=== PATIENT | female | born 1935 | race Caucasian/White ===

== ENCOUNTER 2016-08-08 08:33 | Emergency (ER) | payer MEDICARE, BC ==
--- NOTE | 2016-08-08 10:45 | EDM.PDOC ---
[id number] Complaint: STOMACH ULCER/ABD PAIN Time Seen by Provider: 08/08/16 10:40 Source of Information: Reports: Patient, Family History Limitations: Reports: No Limitations - History of Present Illness INITIAL COMMENTS - FREE TEXT/NARRATIVE: pt arrived with pain in the left lower abdoman. She has a known ventral hernia on th left. She hs been having marked diarrhea for the past 2 days. This is not dark or bloody in nature. Onset: Gradual Duration: Day(s): Location: Reports: Abdomen Associated Symptoms: Reports: Other ( diarrhea) - Related Data Allergies Allergy/AdvReac Type Severity Reaction Status Date / Time No Known Allergies Allergy Verified 08/08/16 10:03 Home Meds: Home Meds Calcium Carb & Citrate/Vit D3 [Calcium + D3 ER Tablet] 1,200 mg PO DAILY [History] Donepezil HCl 10 mg PO DAILY 08/08/16 [History] Fish Oil/DHA/EPA [Fish Oil 1,200 MG] 1,200 mg PO DAILY 08/08/16 [History] Iron 65 mg PO DAILY 08/08/16 [History] Past Medical History HEENT History: Reports: Cataract Genitourinary History: Reports: Other (See Below) Other Genitourinary History: renal cancer lt kidney removed MANAGEMENT TECH History: Reports: Neurological History: Reports: Alzheimers Disease, Other (See Below) Other Neuro History: aricept for short term memory issues Psychiatric History: Reports: Alzheimers Disease, Other (See Below) Oncologic (Cancer) History: Reports: Renal 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 - Infectious Disease History Infectious Disease History: Reports: Chicken Pox, Measles - Past Surgical History GI Surgical History: Reports: Cholecystectomy Social & Family History - Family History Cardiac: Reports: CAD Endocrine/Metabolic: Reports: Diabetes, Type I Oncologic: Reports: Bone, Prostate - Tobacco Use Smoking Status *Q: Never Smoker - Caffeine Use Caffeine Use: Reports: Coffee, Soda, Tea Other Caffeine Use: daily - Recreational Drug Use Recreational Drug Use: No ED ROS GENERAL - Review of Systems Review Of Systems: See Below Constitutional: Reports: Weakness, Decreased Appetite HEENT: Reports: No Symptoms Respiratory: Reports: No Symptoms Cardiovascular: Reports: No Symptoms Endocrine: Reports: No Symptoms GI/Abdominal: Reports: Abdominal Pain, Diarrhea, Decreased Appetite, Other (pt has pain in the left lower abdoman. ) : Reports: No Symptoms, Other (history of Ca of the kidney. ) Musculoskeletal: Reports: No Symptoms Skin: Reports: No Symptoms Psychiatric: Reports: No Symptoms Hematologic/Lymphatic: Reports: No Symptoms Immunologic: Reports: No Symptoms ED EXAM, GI/ABD - Physical Exam Exam: See Below Text/Narrative:: Pt has been having pain in the rt lower abdoman. She has been having loose stools for the past 2 days. Exam Limited By: No Limitations General Appearance: Alert, Anxious, Moderate Distress Eyes: Bilateral: Normal Appearance, EOMI Ears: Normal TMs Nose: Normal Inspection Throat/Mouth: Normal Inspection Head: Atraumatic Neck: Normal Inspection Respiratory/Chest: No Respiratory Distress Cardiovascular: Regular Rate, Rhythm GI/Abdominal: Tenderness, Guarding, Other ( Pt has been having diarrhea and she is tender in the left lower abdoman. She has had diverticulitis in the past. ) (Female) Exam: Deferred Rectal (Female) Exam: Deferred Back Exam: Normal Inspection Extremities: Normal Inspection Neurological: Alert, Oriented, Normal Cognition Psychiatric: Anxious Course - Vital Signs Last Recorded V/S: Last Vital Signs Temp 36.3 C 08/08/16 10:09 Pulse 58 L 08/08/16 11:56 Resp 14 08/08/16 11:56 BP 142/74 H 08/08/16 11:56 Pulse Ox 96 08/08/16 11:56 - Orders/Labs/Meds Labs: Laboratory Tests 08/08/16 08/08/16 08/08/16 Range/Units 09:54 09:54 09:54 WBC 8.9 (4.5-11.0) K/uL RBC 4.64 (3.30-5.50) M/uL Hgb 13.4 (12.0-15.0) g/dL Hct 40.9 (36.0-48.0) % MCV 88 (80-98) fL MCH 29 (27-31) pg MCHC 33 (32-36) % Plt Count 247 (150-400) K/uL Neut % (Auto) 78 H (36-66) % Lymph % (Auto) 8 L (24-44) % [place] % (Auto) 12 H (2-6) % Eos % (Auto) 1 L (2-4) % Baso % (Auto) 1 (0-1) % Sodium 138 L (140-148) mmol/L Potassium 4.1 (3.6-5.2) mmol/L Chloride 101 (100-108) mmol/L Carbon Dioxide 26 (21-32) mmol/L Anion Gap 15.1 H (5.0-14.0) mmol/L BUN 19 H (7-18) mg/dL Creatinine 1.6 H (0.6-1.0) mg/dL Est Cr Clr Drug Dosing 24.62 mL/min Estimated GFR (MDRD) 31 L (>60) Glucose 88 (74-106) mg/dL Calcium 9.1 (8.5-10.1) mg/dL Total Bilirubin 0.9 (0.2-1.0) mg/dL AST 16 (15-37) U/L ALT 12 (12-78) U/L Alkaline Phosphatase 68 (46-116) U/L C-Reactive Protein 6.25 H (0.0-0.3) mg/dL Total Protein 7.1 (6.4-8.2) g/dL Albumin 3.5 (3.4-5.0) g/dL Globulin 3.6 H (2.3-3.5) g/dL Albumin/Globulin Ratio 1.0 L (1.2-2.2) Urine Color Yellow Urine Appearance Slightly cloudy Urine pH 5.0 (4.5-8.0) Ur Specific [place] 1.015 (1.008-1.030) Urine Protein Negative (NEGATIVE) mg/dL Urine Glucose (UA) Normal (NEGATIVE) mg/dL Urine Ketones 15 H (NEGATIVE) mg/dL Urine Occult Blood Negative (NEGATIVE) Urine Nitrite Negative (NEGATIVE) Urine Bilirubin Negative (NEGATIVE) Urine Urobilinogen Normal (NORMAL) mg/dL Ur Leukocyte Esterase Negative (NEGATIVE) Urine RBC 0-5 (0-5) Urine WBC Not seen (0-5) Ur Epithelial Cells Rare Amorphous Sediment Rare Urine Bacteria Not seen Urine Mucus Not seen Meds: Medications Discontinued Medications Generic Name Dose Route Start Last Admin Trade Name Freq PRN Reason Stop Dose Admin Sodium Chloride 1,000 mls @ 999 mls/hr 08/08/16 11:45 08/08/16 11:57 Normal Saline IV 999 mls/hr ASDIRECTED KATIE Administration Metronidazole 500 mg/ Premix 100 mls @ 100 mls/hr 08/08/16 11:43 08/08/16 12: 16 IV 08/08/16 12:42 100 mls/hr ONETIME ONE Administration Levofloxacin/Dextrose 500 mg/ 100 mls @ 100 mls/hr 08/08/16 11:44 08/08/16 12 :15 Premix IV 08/08/16 12:43 100 mls/hr ONETIME ONE Administration - Re-Assessments/Exams Free Text/Narrative Re-Assessment/Exam: 08/08/16 12:21 Pt had an elvated crp. Her wbc was not elevated. Her creatnine was 1.6. She had a noncontrast cat scan which showed acute diverticulits. 08/09/16 19:25 pt was given flagyl 500mg iv and levoquin 500mg iv. Departure - Departure Time of Disposition: 12:22 Disposition: Home, Self-Care 01 Condition: Fair Clinical Impression: Diverticulitis - Discharge Information Instructions: Diverticulitis, [id number] Referrals: PCP,None [Primary Care Provider] - Forms: ED Department Discharge Care Plan Goals: cipro 500mg bid for 10 days, flagyl 250mg tid for 10 days, appt with Dr Villarreal in [place] on Saturday in follow up. If not improving rtc to the ER. tylenol for pain.
--- NOTE | 2016-08-08 11:23 | CT ---
Abdomen Pelvis wo Cont HISTORY: left lower quadrant pain, diarrhea. Axial spiral noncontrasted CT scan of the abdomen and pelvis was obtained along with coronal reconst ructions. There are no prior exams for comparison. FINDINGS: There is a 3 mm noncalcified pulmonary nodule left lower lobe posteriorly on axial image 5 . Also centered on axial image 5 is a noncalcified pulmonary nodule lateral left lower lobe measurin g 4 x 7 mm. There is mild linear scarring at the lung bases. No pleural fluid is seen. Heart size ap pears normal. No obvious focal amount of the liver or spleen can be identified on this noncontrasted exam. Surgica l clips are noted in the gallbladder bed consistent with prior cholecystectomy. There is a 1 cm diam eter cyst at the tail of the pancreas. No other pancreatic abnormality is seen. I see no biliary or pancreatic duct dilatation. No adrenal mass is identified. Left nephrectomy changes are noted. No ri ght renal mass or hydronephrosis can be seen. There is scattered atherosclerotic vascular calcificat ion. Abdominal aorta is not dilated. Multiple diverticula are present in the descending and sigmoid colon. There is a prominent inflamed diverticulum mid sigmoid colon. There is adjacent colon wall thickening and stranding in the pericol onic fat. Findings appear consistent with acute diverticulitis. I see no definite perforation or abs cess. Small bowel loops are nondistended. No free air or free fluid is seen. There is a small abdominal wall hernia left lower quadrant with no signs of incarceration. There is no pelvic, retroperitoneal, mesenteric adenopathy. No obvious lytic or blastic bony lesion can be se en. Diffuse degenerative changes are noted lower thoracic and lumbar spine. IMPRESSION: 1. Diverticulosis descending and sigmoid colon. Probable acute diverticulitis mid sigmoid colon. No perforation or abscess is identified. 2. Status post cholecystectomy. 3. A 1 cm diameter cyst is noted tail of the pancreas. 4. Scattered atherosclerotic vascular calcification. 5. Status post left nephrectomy. 6. There are 2 small, nonspecific left lower lobe pulmonary nodules as described above. Metastatic d isease is not excluded. Obtaining prior CT exams for comparison would be helpful to assess for inter evans changes. 7. Small abdominal wall hernia is noted left lower quadrant. No signs of incarceration. Report was called to Dr. Rice in the Emergency Department at 1110 hours. Total DLP 855 mGycm
[2016-08-08] MEDS ORDERED: metroNIDAZOLE/Normal Saline 500 MG in Premix Bag 1 BAG IV ONE (11:43)
[2016-08-08] MEDS ORDERED: Levofloxacin/Dextrose 5%-Water 500 MG in Premix Bag 1 BAG IV ONE (11:44)
[2016-08-08] MEDS ORDERED: Sodium Chloride 0.9% 1,000 ML IV SCH (11:45)
[2016-08-08 11:57] VITALS: BP 142/74
== END 2016-08-08 13:36 | disposition home or self-care (01) ==
LOC: JP.ED 08:33
DX: K57.92 Diverticulitis of intestine, part unspecified, without perforation or abscess without bleeding (principal); G30.9 Alzheimer's disease, unspecified; Z90.49 Acquired absence of other specified parts of digestive tract; Z79.899 Other long term (current) drug therapy
CPT/HCPCS: 36415; 74176; 80053; 81001; 85025; 86140; 96361; 96365; 96368; 99284; J1956; J7040

== ENCOUNTER 2016-08-12 18:26 | Emergency (ER) | payer MEDICARE, BC ==
[2016-08-12 18:47] VITALS: BP 148/77
--- NOTE | 2016-08-12 19:31 | EDM.PDOC ---
ED HPI GENERAL MEDICAL PROBLEM - General Chief Complaint: Skin Complaint Stated Complaint: REACTION TO MEDICATION GIVEN EARLIER THIS WEEK Time Seen by Provider: 08/12/16 19:15 Source of Information: Reports: Patient, Family History Limitations: Reports: No Limitations - History of Present Illness INITIAL COMMENTS - FREE TEXT/NARRATIVE: 81-year-old female currently on antibiotics for diverticulitis has developed several periodic papules on her upper chest and left neck over the past 2 days. They've been putting bacitracin on the lesions and they started searching on the Internet and thought she might be having a reaction to the antibiotics. No shortness of breath, no nausea or vomiting, the diverticulitis is improving. Onset: Gradual (Over the past 2 days) Location: Reports: Neck, Chest Severity: Mild Associated Symptoms: Reports: Other (Lesions are pruritic and slightly tender) - Related Data Allergies Allergy/AdvReac Type Severity Reaction Status Date / Time No Known Allergies Allergy Verified 08/08/16 10:03 Home Meds: Home Meds Calcium Carb & Citrate/Vit D3 [Calcium + D3 ER Tablet] 1,200 mg PO DAILY [History] Donepezil HCl 10 mg PO DAILY 08/08/16 [History] Fish Oil/DHA/EPA [Fish Oil 1,200 MG] 1,200 mg PO DAILY 08/08/16 [History] Iron 65 mg PO DAILY 08/08/16 [History] Ciprofloxacin [Ciprofloxacin HCl] 500 mg PO BID 08/12/16 [History] metroNIDAZOLE [Metronidazole] 250 mg PO TID 08/12/16 [History] Past Medical History HEENT History: Reports: Cataract Gastrointestinal History: Reports: Diverticulosis Genitourinary History: Reports: Other (See Below) Other Genitourinary History: renal cancer lt kidney removed [employer]ING RO[employer] History: Reports: Neurological History: Reports: Alzheimers Disease, Other (See Below) Other Neuro History: aricept for short term memory issues Psychiatric History: Reports: Alzheimers Disease, Other (See Below) Oncologic (Cancer) History: Reports: Renal 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 - Infectious Disease History Infectious Disease History: Reports: Chicken Pox, Measles - Past Surgical History GI Surgical History: Reports: Cholecystectomy Social & Family History - Family History Cardiac: Reports: CAD Endocrine/Metabolic: Reports: Diabetes, Type I Oncologic: Reports: Bone, Prostate - Tobacco Use Smoking Status *Q: Never Smoker Second Hand Smoke Exposure: No - Caffeine Use Caffeine Use: Reports: Coffee Other Caffeine Use: daily - Recreational Drug Use Recreational Drug Use: No ED ROS GENERAL - Review of Systems Review Of Systems: See Below Constitutional: Denies: Fever, Chills HEENT: Reports: No Symptoms Respiratory: Denies: Shortness of Breath Cardiovascular: Denies: Chest Pain GI/Abdominal: Reports: Abdominal Pain (Diverticulitis pain is almost gone). Denies: Nausea, Vomiting Skin: Reports: Other (See HPI) ED EXAM, SKIN/RASH Exam: See Below Exam Limited By: No Limitations General Appearance: Alert, No Apparent Distress Throat/Mouth: Normal Inspection Neck: Other (Patient has 3 discrete slightly erythematous papules 2 on the left neck and one in the upper chest. They appear to be some type of insect bite.) Respiratory/Chest: No Respiratory Distress, Lungs Clear Cardiovascular: Regular Rate, Rhythm Neurological: Alert, Oriented Psychiatric: Normal Affect, Normal Mood Skin: Warm, Dry, Other (Other than 3 apparent insect bites there are no other skin abnormalities obvious) Course - Vital Signs Last Recorded V/S: Last Vital Signs Temp 98.3 F 08/12/16 18:57 Pulse 58 L 08/12/16 18:57 Resp 12 08/12/16 18:57 BP 148/77 H 08/12/16 18:57 Pulse Ox 96 08/12/16 18:57 - Re-Assessments/Exams Free Text/Narrative Re-Assessment/Exam: 08/12/16 19:29 Reassured the patient this is not a reaction to the antibiotic. She was given triamcinolone cream to use 3 times a day on the bites, and I advised her to use some oral Benadryl at bedtime to help her sleep. These should improve rapidly, if they're worsening she can return anytime. Departure - Departure Time of Disposition: 19:40 Disposition: Home, Self-Care 01 Condition: Good Clinical Impression: Insect bite of neck Qualifiers: Encounter type: initial encounter Qualified Code(s): S10.96XA - Insect bite of unspecified part of neck, initial encounter - Discharge Information Instructions: Insect Bite, [id number] Referrals: PCP,None [Primary Care Provider] - Forms: ED Department Discharge Care Plan Goals: Use cream on the bites 3 times a day for the next 5-7 days. Oral Benadryl at bedtime may help with sleep. Consider rechecking in 3-4 days if not significant improvement, or return anytime if you feel you're worsening.
== END 2016-08-12 19:40 | disposition home or self-care (01) ==
LOC: JP.ED 18:26
DX: S10.96XA Insect bite of unspecified part of neck, initial encounter (principal); W57.XXXA Bitten or stung by nonvenomous insect and other nonvenomous arthropods, initial encounter; E10.9 Type 1 diabetes mellitus without complications; G30.9 Alzheimer's disease, unspecified; F02.80 Dementia in other diseases classified elsewhere, unspecified severity, without behavioral disturbance, psychotic disturbance, mood disturbance, and anxiety; Z90.5 Acquired absence of kidney; Z79.899 Other long term (current) drug therapy; Z90.49 Acquired absence of other specified parts of digestive tract
CPT/HCPCS: 99282; 99283

== ENCOUNTER 2016-10-26 09:22 | Emergency (ER) | payer MEDICARE, BC ==
[2016-10-26 09:35] VITALS: BP 183/106
--- NOTE | 2016-10-26 10:21 | EDM.PDOC ---
ED HPI GENERAL MEDICAL PROBLEM - General Chief Complaint: Genitourinary Problem Stated Complaint: UTI SYMPTOMS Time Seen by Provider: 10/26/16 10:17 Source of Information: Reports: Patient, Family, RN Notes Reviewed History Limitations: Reports: No Limitations - History of Present Illness INITIAL COMMENTS - FREE TEXT/NARRATIVE: 81-year-old female presents emergency department today complaint of burning with urination she states that she's had symptoms for about a week however has progressively gotten worse over the last couple days she denies any fevers nausea vomiting shortness of breath chest pain - Related Data Allergies Allergy/AdvReac Type Severity Reaction Status Date / Time No Known Allergies Allergy Verified 10/26/16 09:31 Home Meds: Home Meds Calcium Carb & Citrate/Vit D3 [Calcium + D3 ER Tablet] 1,200 mg PO DAILY [History] Donepezil HCl 10 mg PO DAILY 08/08/16 [History] Fish Oil/DHA/EPA [Fish Oil 1,200 MG] 1,200 mg PO DAILY 08/08/16 [History] Iron 65 mg PO DAILY 08/08/16 [History] Past Medical History HEENT History: Reports: Cataract Gastrointestinal History: Reports: Diverticulosis Genitourinary History: Reports: Other (See Below) Other Genitourinary History: renal cancer lt kidney removed [employer] History: Reports: Neurological History: Reports: Alzheimers Disease, Other (See Below) Other Neuro History: aricept for short term memory issues Psychiatric History: Reports: Alzheimers Disease Oncologic (Cancer) History: Reports: Renal 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 - Infectious Disease History Infectious Disease History: Reports: Chicken Pox, Measles - Past Surgical History GI Surgical History: Reports: Cholecystectomy Female Surgical History: Reports: Nephrectomy Musculoskeletal Surgical History: Reports: Knee Replacement Social & Family History - Family History Cardiac: Reports: CAD Endocrine/Metabolic: Reports: Diabetes, Type I Oncologic: Reports: Bone, Prostate - Tobacco Use Smoking Status *Q: Never Smoker Second Hand Smoke Exposure: No - Caffeine Use Caffeine Use: Reports: Coffee Other Caffeine Use: daily - Recreational Drug Use Recreational Drug Use: No ED ROS GENERAL - Review of Systems Review Of Systems: See Below Constitutional: Reports: No Symptoms Respiratory: Reports: No Symptoms Cardiovascular: Reports: No Symptoms GI/Abdominal: Reports: No Symptoms : Reports: Dysuria, Urgency ED EXAM, RENAL/ - Physical Exam Exam: See Below Exam Limited By: No Limitations General Appearance: Alert, WD/WN, No Apparent Distress GI/Abdominal: Soft, Non-Tender Back Exam: No: CVA Tenderness (R), CVA Tenderness (L) Course - Vital Signs Last Recorded V/S: Last Vital Signs Temp 96.8 F 10/26/16 09:34 Pulse 61 10/26/16 09:34 Resp 16 10/26/16 09:34 BP 183/106 H 10/26/16 09:34 Pulse Ox 96 10/26/16 09:34 - Orders/Labs/Meds Orders: Active Orders 24 hr Category Date Time Status CULTURE URINE [RM] Urgent Lab 10/26/16 10:15 Ordered Labs: Laboratory Tests 10/26/16 Range/Units 09:48 Urine Color Yellow Urine Appearance Cloudy Urine pH 6.0 (4.5-8.0) Ur Specific [place] 1.015 (1.008-1.030) Urine Protein Negative (NEGATIVE) mg/dL Urine Glucose (UA) Normal (NEGATIVE) mg/dL Urine Ketones Negative (NEGATIVE) mg/dL Urine Occult Blood Moderate (NEGATIVE) Urine Nitrite Negative (NEGATIVE) Urine Bilirubin Negative (NEGATIVE) Urine Urobilinogen Normal (NORMAL) mg/dL Ur Leukocyte Esterase Large (NEGATIVE) Urine RBC 10-20 H (0-5) Urine WBC Packed H (0-5) Ur Epithelial Cells Moderate Amorphous Sediment Not seen Urine Bacteria Many Urine Mucus Not seen Departure - Departure Time of Disposition: 10:20 Disposition: Home, Self-Care 01 Condition: Good Clinical Impression: UTI, Urinary tract infectious disease - Discharge Information Referrals: PCP,None [Primary Care Provider] - Additional Instructions: Take full course of antibiotics, Please followup with your primary care provider in 5-7 days if not better, please call return to the emergency department with worsening of symptoms. 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 This note was dictated using [employer] voice recognition software please call with any questions.
== END 2016-10-26 10:19 | disposition home or self-care (01) ==
LOC: JP.ED 09:22
DX: N39.0 Urinary tract infection, site not specified (principal); G30.9 Alzheimer's disease, unspecified; Z90.49 Acquired absence of other specified parts of digestive tract; Z85.528 Personal history of other malignant neoplasm of kidney; Z96.659 Presence of unspecified artificial knee joint; Z98.890 Other specified postprocedural states; Z79.899 Other long term (current) drug therapy
CPT/HCPCS: 81001; 87086; 87088; 87186; 99283; 99284